=== PATIENT | female | born 1970 | race Caucasian/White ===

== ENCOUNTER 2022-04-15 21:04 | Emergency (ER) | payer SELFPAY ==
[2022-04-15 21:18] VITALS: BP 131/104; PULSE 107; RESP 22; TEMP 36.5; O2SAT 97
--- NOTE | 2022-04-15 21:30 | DI.CT_ITS ---
Exam(s) CT LUMBAR SPINE WO EXAM: CT LUMBAR SPINE WO CLINICAL HISTORY: lumbar pain after fall and trauma. TECHNIQUE: Imaging Protocol: Axial computed tomography images with coronal and sagittal reformatted images were created and reviewed COMPARISON: No exams were available for comparison FINDINGS: Bones: There are no fractures, listhesis, nor pars defects. There are no lytic osseous lesions evide nt.Transitional lumbosacral vertebra partial sacralization evident. INDIVIDUAL LEVELS: There is preserved disc height at each level. There is multilevel mild annular bu lging without a dominant disc herniation evident. Mild multilevel central spinal canal stenosis. No significant foraminal stenosis. No prominent facet arthropathy. The visualized sacroiliac joints and sacrum appear unremarkable. PARASPINAL SOFT TISSUES: Visualized paraspinal tissues appear unremarkable. IMPRESSION: 1. No evidence of fracture or listhesis in the lumbar spine. No dominant disc herniation. 2. Mild multilevel central spinal canal stenosis due to mild annular bulging, and short AP dimensions the pedicles. 3. No osseous lesions. Incidentally noted are nonobstructive tiny calculi in the right kidney. RADIATION DOSE DELIVERED: 358.04mGy.cm Total DLP DATA REPOSITORY: All CT scans at this facility are submitted to the National Radiology Data Registry (NRDR) Dose Index Registry (DIR) with the [employer] ([employer]). RADIATION OPTIMIZATION: All CT scans at this facility use at least one of these dose optimization te chniques: automated exposure control; mA and/or kV adjustment per patient size (includes targeted exa ms where dose is matched to clinical indication); or iterative reconstruction.
[2022-04-15] MEDS: Ibuprofen 800 MG TAB PO (21:52)
[2022-04-15] MEDS: Lidocaine 5% Patch 1 PATCH TP (21:52)
--- NOTE | 2022-04-15 22:33 | DI.VRAD_ITS ---
PROCEDURE INFORMATION: Exam: CT Lumbar Spine Without Contrast Exam date and time: 04/15/2022 10:01 PM Age: 51 years old Clinical indication: Low back pain; Patient HX: Lumbar pain after fall and trauma TECHNIQUE: Imaging protocol: Computed tomography of the lumbar spine without contrast. COMPARISON: No relevant prior studies available. FINDINGS: Bones/joints: No acute fracture. Normal alignment. Discs/Spinal canal/Neural foramina: Mild posterior disc bulges at L2-L3, L3-L4, and L4-L5. This is also noted at L5-S1. Most prominent at L4-L5 and L5-S1. L4-L5 disc bulge is approximately 7 mm. L5-S1 disc bulge is approximately 5 mm. There is moderate spinal stenosis at L4-L5. There is mild spinal stenosis at L5-S1. Mild spinal stenosis at L3-L4 and L2-L3. Transitional vertebra at L5 with partial sacralization. Gallbladder and bile ducts: Previous cholecystectomy. Kidneys and ureters: Right kidney with a mid pole hyperdense pyramid. Significance uncertain. This could reflect nephrocalcinosis. Punctate right renal calculus is also noted within the mid pole infundibulum. Reproductive: Previous hysterectomy. Vasculature: Abdominal aorta atherosclerotic calcium. No aneurysm. Soft tissues: Unremarkable. IMPRESSION: 1. No lumbar spine fracture or dislocation. 2. Multilevel degenerative disc bulges with spinal stenosis features. Most prominent at L4-L5 with moderate stenosis. Dictated and Authenticated by: Serg Lawrence MD. Ordering:MAYNOR Junior MD
--- NOTE | 2022-04-15 22:50 | ED.GENADUL_ITS ---
Discharge Plan Disposition Patient Disposition: HOME Condition: Good Discharge Details Clinical Impression: Back contusion Primary Care Provider: None,None ED Provider: Vernon Gonzales Home Meds and New Rx's Prescriptions: New lidocaine [Lidoderm] 5 % adhesive patch,medicated 1 patch Topical Q24H Qty: 15 0RF No Action gabapentin 400 mg Capsule 400 mg PO 1XD Discharge Instructions Instructions: Contusion in Adults (ED) Additional Instructions: At this time your signs and symptoms are clinically consistent with a back sprain and contusion. This can cause significant pain and take a fair bit of time to heal. In the meantime do not lift anything greater than 5 pounds for the next 2 weeks. Avoid any significant vigorous physical activity. Perform easy gentle regular activities at home without any significant bending or lifting.You have been given a prescription for Lidoderm patch. If your insurance does not cover this you can get [id number] Lidoderm patches at 4% which are almost just as effective. Perform daily gentle stretches on your back. Please continue to take the Tylenol and Motrin. You can take 1000 mg of Tylenol every 6 hours and 600 mg of ibuprofen every 6 hours. If you notice any worsening of your symptoms, or any new symptoms such as vomiting, diarrhea, fever, chills, shortness of breath, chest pain, numbness or tingling in your groin or legs, weakness in your legs, loss of control for your bowels or bladder, or fainting , please return immediately to the emergency department for reevaluation. Please follow up with your primary care provider as soon as possible for reassessment and reevaluation. As always, it was a pleasure participating in your medical care today. Medical Decision Making 51-year-old female with a past medical history of previous back arthritis, presents today for evaluation of back pain. Patient states that she fell off the back steps at the [employer] office and landed on her tailbone and back on concrete. She initially refused ambulance transport but the pain worsened on the car ride home. She denies any new numbness or tingling. She denies any chest pain. Patient denies any saddle anesthesia, numbness or tingling in the groin, change in sensation when wiping. Patient denies any change in sensation during sexual intercourse, bowel or bladder incontinence, leakage, or retention. Patient denies any weakness in the lower extremities, atypical falls or imbalance. Physical exam demonstrates midline tenderness in the lumbar spine, as well as the paraspinal areas. No other signs of trauma. She has actually no tenderness over the coccyx, or buttock region. No significant tenderness over the sacrum. Due to the mechanism, and the tenderness, we will get a CT scan of the lumbar spine. She shows no clinical evidence of cauda equina syndrome. She has normal sensation normal movement normal strength otherwise. 11:[address] scan is negative for acute process per virtual radiology. No evidence of spine fracture or dislocation. There is evidence of chronic disc bulges, and spinal stenosis, but no other significant abnormalities. Patient is stable for discharge. On reassessment she feels much better, pain is notably improved with Lidoderm patch and ibuprofen. Will recommend continued heating pad, NSAIDs, and Lidoderm patch at home. We will send prescription for Lidoderm patch. Discussed red flags which to return. No clinical evidence of cauda equina syndrome at this time. I have extensively reviewed the treatment plan and discharge instructions with the patient. I have addressed all patient concerns at this time. The patient was made aware of what symptoms to monitor for that would warrant a return to the emergency department. Discussed the plan with the patient, they demonstrate verbal understanding and agreement with our assessment and plan at this time. The documentation in this chart was dictated using [employer] dictation software. Please excuse any dictation errors. FINDINGS: Bones/joints: No acute fracture. Normal alignment. Discs/Spinal canal/Neural foramina: Mild posterior disc bulges at L2-L3, L3-L4, and L4-L5. This is also noted at L5-S1. Most prominent at L4-L5 and L5-S1. L4-L5 disc bulge is approximately 7 mm. L5-S1 disc bulge is approximately 5 mm. There is moderate spinal stenosis at L4- L5. There is mild spinal stenosis at L5-S1. Mild spinal stenosis at L3-L4 and L2-L3. Transitional vertebra at L5 with partial sacralization. Gallbladder and bile ducts: Previous cholecystectomy. Kidneys and ureters: Right kidney with a mid pole hyperdense pyramid. Significance uncertain. This could reflect nephrocalcinosis. Punctate right renal calculus is also noted within the mid pole infundibulum. Reproductive: Previous hysterectomy. Vasculature: Abdominal aorta atherosclerotic calcium. No aneurysm. Soft tissues: Unremarkable. IMPRESSION: 1. No lumbar spine fracture or dislocation. 2. Multilevel degenerative disc bulges with spinal stenosis features. Most prominent at L4-L5 with moderate stenosis. Thank you for allowing us to participate in the care of your patient. Dictated and Authenticated by: Serg Lawrence MD 04/15/2022 10:33 PM Eastern Time ([place] & [place]) HPI General Date/Time Provider Initiated Documentation: 04/15/22 21:08 . HPI Narrative: 51-year-old female with a past medical history of previous back arthritis, presents today for evaluation of back pain. Patient states that she fell off the back steps at the [employer] and landed on her tailbone and back on concrete. She initially refused ambulance transport but the pain worsened on the car ride home. She denies any new numbness or tingling. She denies any chest pain. Patient denies any saddle anesthesia, numbness or tingling in the groin, change in sensation when wiping. Patient denies any change in sensation during sexual intercourse, bowel or bladder incontinence, leakage, or retention. Patient denies any weakness in the lower extremities, atypical falls or imbalance. Related Data Home Medications Medication Instructions Recorded Confirmed gabapentin 400 mg capsule 400 mg PO 1XD 04/15/22 04/15/22 lidocaine 5 % topical patch 1 patch topical Q24H #15 ea 04/15/22 (Lidoderm) Previous Rx's Medication Instructions Recorded lidocaine 5 % topical patch 1 patch topical Q24H #15 ea 04/15/22 (Lidoderm) Allergies Allergy/AdvReac Type Severity Reaction Status Date / Time penicillin G Allergy Severe Anaphylaxis Unverified 04/15/22 21:26 codeine Allergy Intermediate Hives Unverified 04/15/22 21:26 mushroom AdvReac Intermediate Hives Unverified 04/15/22 21:26 General Stated Complaint: Orthopedic GUICHO: 3 Review of Systems All systems reviewed & are unremarkable except as noted in HPI and below PFSH All Active Problems Back contusion (Acute) Social History Smoking/Tobacco Use Status: Current every day Tobacco Type: cigarettes Smoking risk assessment performed?: Yes Alcohol Intake: never Substance use type: does not use Do you feel safe at home: Yes Do you feel safe in your relationship?: Yes Exam Narrative Exam Narrative: 1.Const: Well-nourished, Well-developed, appearing stated age 2.Eyes: PERRL, no conjunctival injection, and symmetrical lids. 3.ENT: Atraumatic external nose and ears. Moist MM. Neck: Symmetric, trachea midline, No thyromegaly. 4.CVS: +S1/S2, No murmurs or gallops. Peripheral pulses 2+ and equal in all extremities. Brisk capillary refill in all extremities. 5.RESP: Unlabored respiratory effort. Clear to auscultation bilaterally. No wheezes rales or rhonchi 6.GI: Soft, Nontender/Nondistended, No hepatosplenomegaly. No guarding or rebound. 7.MSK: Normocephalic/Atraumatic, Extremities w/o deformity or ttp No cyanosis or clubbing, Normal movement of all extremities No midline tenderness to palpation over the CTS spine. Normal ROM in flexion, extension, side bend, and rotation. However patient does have notable midline and more so lateral tenderness over L3-L4 and L5. No flank or CVA tenderness. No tenderness over the hip or iliac crest. Patient has +5 out of 5 strength in the lower extremities in dorsiflexion and plantarflexion, knee flexion and e xtension, hip flexion and extension. Normal strength for dorsiflexion and plantar flexion of the great toe bilaterally. There is +2 over 2 dorsalis pedis pulses bilaterally. There is normal sensation to the skin with light touch at the foot, knee, and hip. Normal saddle sensation. Good sensation over the deep sural nerve area bilaterally. Rectal exam demonstrates good rectal tone and good perirectal sensation. Reflexes are +2 over 4 in the patellar reflex bilaterally. +5 out of 5 strength in the medial, ulnar, radial nerve distribution bilaterally in the hands as well as intact light touch sensation to these dermatomes on the hands 8.Skin: Warm, Dry. No rashes or lesions. 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 Sensation grossly intact, no focal neurologic deficits. 10.Psych: (AAO) x3. Appropriate mood and affect Course Vital Signs Vital signs: Vital Signs Temperature 36.5 C 04/15/22 21:18 Pulse 107 H 04/15/22 21:18 Respiratory Rate 22 08/14/22 21:18 Blood Pressure 131/104 H 04/15/22 21:18 Pulse Oximetry 97 04/15/22 21:18 Temperature 36.5 C 04/15/22 21:18 Pulse 107 H 04/15/22 21:18 Respiratory Rate 22 04/15/22 21:18 Respiratory Effort 04/15/22 21:27 Blood Pressure 131/104 H 04/15/22 21:18 Blood Pressure Position Sitting 04/15/22 21:18 Pulse Oximetry 97 04/15/22 21:18 Oxygen Delivery Method Room Air 04/15/22 21:18 Oxygen Flow Rate 0 04/15/22 21:18 Pain Level 9 04/15/22 21:18
== END 2022-04-15 23:04 | disposition home or self-care (01) ==
PROVIDERS: Emergency Provider Student in an Organized Health Care Education/Training Program
DX: S30.0XXA Contusion of lower back and pelvis, initial encounter (principal); W17.89XA Other fall from one level to another, initial encounter
CPT/HCPCS: 99284; 72131; 99283